=== PATIENT | female | born 1960 | race Caucasian/White ===

== ENCOUNTER 2017-08-11 12:45 | Emergency (ER) | payer MEDICAID ==
[~2017-08-11] VITALS: Ht 149.9 cm; Wt 46.5 kg
[2017-08-11 12:47] VITALS: Ht 149.9 cm; Wt 46.5 kg
[2017-08-11] MEDS ORDERED: CALC1TAB PO (13:11)
[2017-08-11] MEDS ORDERED: LEVO50TA83 PO (13:11)
[2017-08-11] MEDS ORDERED: DILT30TA30 PO (13:11)
--- NOTE | 2017-08-11 13:26 | ERD ---
ER Documentation Chief Complaint Date/Time DATE: 08/11/17 TIME: 13:25 Chief Complaint needs medrefill for levothyroxine; denies symptomsr HPI Patient is a 57-year-old female with high blood pressure, diabetes, and thyroid disease who presents with needing a medication refill. She needs levothyroxine , Caltrate plus, and Vascor for her blood pressure. She has no symptoms at this time. She moved from the [facility] recently and had a plan to see her primary doctor today but there is no appointment available unfortunately and so she needs his medications filled. She does not remember the name of her primary doctor. She has no complaints. ROS All systems reviewed and are negative except as per history of present illness. Medications Home Meds Active Scripts Diltiazem Hcl* (Cardizem*) 30 Mg Tablet, 30 MG PO DAILY, #30 TAB Prov:HETAL JOSUE MD 08/11/17 Calcium Carbonate/Vitamin D3 (Caltrate 600 Plus D3 Tablet) 1 Each Tablet, 1 EACH PO DAILY, #30 TAB Prov:HETAL JOSUE MD 08/11/17 Levothyroxine Sodium* (Synthroid*) 50 Mcg Tablet, 50 MCG PO BEFORE BREAKFAST, # 30 TAB Prov:HETAL JOSUE MD 08/11/17 PMhx/Soc History of Surgery: No Anesthesia Reaction: No Hx Neurological Disorder: No Hx Respiratory Disorders: No Hx Cardiac Disorders: Yes (HTN) Hx Psychiatric Problems: No Hx Miscellaneous Medical Probl: No Hx Alcohol Use: No Hx Substance Use: No Hx Tobacco Use: No Smoking Status: Never smoker FmHx Family History: No diabetes Physical Exam Vitals Vital Signs Date Time Temp Pulse Resp B/P Pulse Ox O2 Delivery O2 Flow Rate FiO2 08/11/17 12:47 97.3 72 16 195/90 98 Physical Exam Const: No acute distress Head: Atraumatic Eyes: Normal Conjunctiva ENT: Normal External Ears, Nose and Mouth. Neck: Full range of motion..~ No meningismus. Resp: Clear to auscultation bilaterally Cardio: Regular rate and rhythm, no murmurs Abd: Soft, non tender, non distended. Normal bowel sounds Skin: No petechiae or rashes Back: No midline or flank tenderness Ext: No cyanosis, or edema Neur: Awake and alert Psych: Normal Mood and Affect Procedures/MDM Patient has no sign of serious etiology at this time. She will be given refills for levothyroxine and Caltrate plus. We do not have prescriptions for Vascor here as this was a calcium channel corbin from the [facility]. I will replace with Cardizem 30 mg daily. The patient can follow-up with her primary doctor within 1 week. She can return for any worsening symptoms. Departure Diagnosis: Primary Impression: Hypertension Hypertension type: essential hypertension Qualified Code: I10 - Essential hypertension Additional Impression: Encounter for medication refill Condition: Fair Patient Instructions: Taking Medicine Safely, High Blood Pressure (Hypertension ) Referrals: Your doctor Additional Instructions: Call your primary care doctor TOMORROW for an appointment during the next 1 WEEK.Tell the junior legal secretary that you were referred from this facility.See the doctor sooner or return here if your condition worsens before your appointment time. HETAL JOSUE MD Aug 11, 2017 13:26
== END 2017-08-11 13:26 | disposition home or self-care (01) ==
LOC: FTE 12:45
DX: I10 Essential (primary) hypertension (principal); E11.9 Type 2 diabetes mellitus without complications
CPT/HCPCS: 99281